=== PATIENT | female | born 1965 | race Caucasian/White ===

== ENCOUNTER 2021-06-25 16:32 | Emergency (ER) | payer OTHER ==
[~2021-06-25] VITALS: Ht 152.4 cm; Wt 74.8 kg
[2021-06-25 18:03] LABS: ABSOLUTE LYMPHOCYTES 1.1 thou/uL (0.8-5.3); ABSOLUTE MONOCYTES 0.8 thou/uL (0.0-1.2); ABSOLUTE NEUTROPHILS 5.2 thou/uL (1.6-8.1); BASOPHILS 0.5 %; EOSINOPHILS 0.2 %; HEMATOCRIT 42.9 % (37.0-47.0); HEMOGLOBIN 14.5 gm/dL (12.0-15.0); MCH 28.6 pg (26.0-34.0); MCHC 33.9 g/dL (28.0-37.0); MCV 84.4 fL (80.0-100.0); MONOCYTES 10.7 %; MPV 8.7 fl. (7.2-11.1); NUCLEATED RBCS 0 /100WBC; PLATELET COUNT* 271 thou/uL (150-400); POLYS 73.6 %; RBC 5.09 mil/uL (4.20-5.00); RDW-CV 12.8 % (10.5-14.5)
[2021-06-25 18:12] LABS: CALCIUM 8.8 mg/dL (8.5-10.1); CREATININE 0.6 mg/dL (0.6-1.3)
[2021-06-25 18:17] LABS: ALBUMIN 3.4 g/dL (3.4-5.0); TOTAL BILIRUBIN 0.9 mg/dL (<0.1-1.0); TOTAL PROTEIN 7.8 g/dL (6.4-8.2)
[2021-06-25] MEDS ORDERED: MEDROLDOSEPACK PO (21:40)
[2021-06-25] MEDS ORDERED: AZITHROMYCIN 2250 MG PO (21:40)
[2021-06-25 22:04] LABS: URINE BILIRUBIN NEGATIVE (Negative); URINE BLOOD 1+ (Negative); URINE CLARITY CLEAR; URINE COLOR YELLOW; URINE GLUCOSE-RANDOM NEGATIVE (Negative); URINE KETONES 1+ (Negative); URINE LEUKOCYTES NEGATIVE (Negative); URINE NITRITE NEGATIVE (Negative); URINE PROTEIN NEGATIVE (Negative); URINE SPECIFIC GRAVITY <= 1.005 (1.005-1.030); URINE UROBILINOGEN 0.2 E.U./dl (0.2-1.0)
[2021-06-25 22:11] LABS: BACTERIA 1-9 Few /HPF (None Seen); CASTS None Seen /LPF (None Seen); CRYSTALS None Seen /LPF (None Seen); MUCUS None Seen strn/LPF (None Seen); SQUAMOUS 0-3 Few /LPF (0-3); URINE RBC 3-10 Few /HPF (0-2); URINE WBC 0-5 Rare /HPF (0-5)
[2021-06-25 23:05] VITALS: BP 122/67
--- NOTE | 2021-06-26 09:23 | EKG ---
[place] [address] ELECTROCARDIOGRAM REPORT Name: GINA CARREON Room: [facility]#: [id number] Admission: 06/25/21 Attend Phys: Discharge: 06/25/21 Date of : 67 Date of Service: 06/25/21 1648 Report #: [id number] THIS REPORT FOR: //name// [facility] ED Test Date: 2021-06-25 Test Time: 16:48:18 Pat Name: GINA CARREON Department: Room: Gender: F Small Products I Assembler: TDS : 1965 Requested By: Delmer Fleming Order Number: [id number] MD: Ketan Rodríguez Measurements Intervals [place] Rate: 112 P: 76 [place]: 113 QRS: 64 QRSD: 70 T: -21 QT: 375 QTc: 512 Interpretive Statements Sinus tachycardia Borderline T abnormalities, diffuse leads Prolonged QT interval No previous ECG available for comparison Electronically Signed On 06-26-2021 9:23:23 ENTRY LEVEL PROJECT ENGINEER by Ketan Rodríguez [email or web address] <ELECTRONICALLY SIGNED> By: Ketan Rodríguez MD, [facility] 06/26/21 0923 1648 1648 Ketan Rodríguez MD, [facility] /EPI
== END 2021-06-25 23:05 | disposition home or self-care (01) ==
LOC: M.ERS 16:32
PROVIDERS: Emergency Medicine
DX: U07.1 COVID-19 (principal); J12.82 Pneumonia due to coronavirus disease 2019

== ENCOUNTER 2021-06-27 14:37 | Emergency (ER) | payer OTHER ==
[~2021-06-27] VITALS: Ht 172.7 cm; Wt 99.8 kg
[~2021-06-27 14:37] MED LIST: AZITHROMYCIN 2250 MG PO; MEDROLDOSEPACK PO
[2021-06-27 17:26] VITALS: BP 155/102
--- NOTE | 2021-06-30 11:22 | EKG ---
[place] [address] ELECTROCARDIOGRAM REPORT Name: LAURIGINA JENNIFER Room: [facility]#: [id number] Admission: 06/27/21 Attend Phys: Discharge: 06/27/21 Date of : 67 Date of Service: 06/27/21 1448 Report #: [id number] THIS REPORT FOR: //name// [facility] ED Test Date: 2021-06-27 Test Time: 14:48:08 Pat Name: GINA CARREON Department: Room: Gender: F Tool Crib Lead: MOUNA : 1965 Requested By: Eddie Monae Order Number: [id number] MD: Mani Barrow Measurements Intervals [place] Rate: 119 P: 73 [place]: 115 QRS: 64 QRSD: 81 T: 35 QT: 314 QTc: 442 Interpretive Statements Sinus tachycardia Minimal ST depression, inferior leads Baseline wander in lead(s) V5,V6 Compared to ECG 06/25/2021 16:48:18 Prolonged QT interval no longer present Electronically Signed On 06-30-2021 11:22:17 BANDER AND CELLOPHANER MACHINE HELPER by Mani Barrow [email or web address] <ELECTRONICALLY SIGNED> By: Mani Barrow MD, [facility] 06/30/21 1122 1448 1448 Mani Barrow MD, [facility] /EPI
== END 2021-06-27 17:27 | disposition home or self-care (01) ==
LOC: M.ERS 14:37
DX: R00.2 Palpitations (principal)

== ENCOUNTER 2021-07-05 08:00 | Emergency (ER) | payer OTHER ==
[~2021-07-05] VITALS: Ht 160 cm; Wt 74.8 kg
[2021-07-05 09:12] LABS: ABSOLUTE LYMPHOCYTES 0.9 thou/uL (0.8-5.3); ABSOLUTE MONOCYTES 0.7 thou/uL (0.0-1.2); ABSOLUTE NEUTROPHILS 6.8 thou/uL (1.6-8.1); BASOPHILS 0.3 %; EOSINOPHILS 0.2 %; HEMATOCRIT 38.9 % (37.0-47.0); MCH 28.6 pg (26.0-34.0); MCHC 33.4 g/dL (28.0-37.0); MCV 85.8 fL (80.0-100.0); MONOCYTES 8.3 %; MPV 8.3 fl. (7.2-11.1); NUCLEATED RBCS 0 /100WBC; PLATELET COUNT* 297 thou/uL (150-400); POLYS 80.2 %; RBC 4.54 mil/uL (4.20-5.00); RDW-CV 13.4 % (10.5-14.5); WBC 8.4 thou/uL (4.0-11.0)
[2021-07-05 09:22] LABS: CALCIUM 8.7 mg/dL (8.5-10.1); CREATININE 0.6 mg/dL (0.6-1.3); POTASSIUM 3.4 mmol/L (3.5-5.1)
[2021-07-05 10:40] VITALS: BP 150/96
--- NOTE | 2021-07-06 12:25 | EKG ---
[place] [address] ELECTROCARDIOGRAM REPORT Name: PETE CARREONELLA JENNIFER Room: [facility]#: [id number] Admission: 07/05/21 Attend Phys: Discharge: 07/05/21 Date of : 67 Date of Service: 07/05/21 0853 Report #: [id number] THIS REPORT FOR: //name// [facility] ED Test Date: 2021-07-05 Test Time: 08:53:57 Pat Name: GINA CARREON Department: Room: Gender: F Community Support Professional: MARQUIS : 1965 Requested By: Eduardo Stevenson Order Number: [id number] MD: Ketan Rodríguez Measurements Intervals [place] Rate: 111 P: 70 [place]: 124 QRS: 47 QRSD: 81 T: 32 QT: 331 QTc: 450 Interpretive Statements Sinus tachycardia Compared to ECG 06/27/2021 14:48:08 ST (T wave) deviation no longer present Electronically Signed On 07-06-2021 12:25:19 USER SUPPORT ANALYST by Ketan Rodríguez [email or web address] <ELECTRONICALLY SIGNED> By: Ketan Rodríguez MD, [facility] 07/06/21 1225 0853 0853 Ketan Rodríguez MD, [facility] /EPI
== END 2021-07-05 10:45 | disposition home or self-care (01) ==
LOC: M.ERS 08:00
PROVIDERS: Emergency Medicine Emergency Medical Services
DX: U07.1 COVID-19 (principal); J06.9 Acute upper respiratory infection, unspecified